=== PATIENT | male | born 1965 | race Caucasian/White ===

== ENCOUNTER 2017-02-21 08:46 | Emergency (ER) | payer OTHER ==
[~2017-02-21] VITALS: Ht 170.2 cm; Wt 70.0 kg
[~2017-02-21 08:46] MED LIST: ADVAIR 100/501 DISK IH; ASCORBIC ACID500 M3 PO; ATROVENT 00.5 MG/2.5 IH; AUGMENTIN875 MG PO; AXIRON90 ML TD; B COMPLETE1 EACH PO; BUDEPRION XL150 MG PO; BUPROPION HCL150 M2 PO; CEFTIN500 MG PO; CEPHALEXIN500 MG PO; CHANTIX1 MG PO; CLONAZEPAM1 MG PO; CLOTRIMAZOLE10 MG PO; COBAL-10001000 MCG/2 IM; COLESTID1 GM PO; COLESTIPOL HCL1 GM PO; COMBIVENT INH14.7 GM IH; COMBIVENT RESPIM4 GM IH; CYANOCOBAL1000 MCG/2 IM; CYPROHEPTADINE H4 MG PO; DELTASONE20 MG PO; DHEA50 M1 PO; DHEA50 MG PO; DIAZEPAM5 MG PO; DUONEB 2.5-0.5 M3 ML AEROSOL; DUONEB 2.5-0.5 M3 ML IH; ERGOCALCIF50000 UNIT PO; ESKALITH300 M1 PO; FEOSOL325 MG PO; FLUOXETINE HCL20 MG PO; FLUTICASONE PROPIONA; FUROSEMIDE40 MG PO; GALZIN50 MG PO; HABITROL,NICODE21 MG TD; IRON325 M1 PO; IRON325 MG PO; K-DUR20 MEQ PO; KLONOPIN0.5 M1 PO; KLOR-CON M2020 MEQ PO; LAMISIL250 MG PO; LANSOPRAZOLE30 MG PO; LASIX40 MG PO; LEVAQUIN750 MG PO; LITHIUM CARBON300 M1 PO; LITHIUM CARBON300 MG PO; LOTRISONE15 GM TP; LOVAZA1 GM PO; LYRICA75 MG PO; MEDROL DOSEPAK4 MG PO; MELATIN3 MG PO; METOCLOPRAMIDE10 MG PO; Neosporin Ointment TP; OCUFLOX 0.100 DROP/5 BOTH EYES; OXYCODONE HCL10 MG PO; OXYCONTIN40 MG PO; OXYCONTIN60 MG PO; OxyCONTIN PO; PENTASA500 MG PO; POTASSIUM CHLO20 ME1 PO; PREDNISONE10 MG PO; PREDNISONE20 MG PO; PREVACID30 MG PO; Pentasa PO; Prevacid PO; Proventil,Ventolin H IH; Prozac PO; REQUIP1 MG PO; REQUIP4 MG PO; ROPINIROLE HCL1 MG PO; SPIRIVA1 INHALATI IH; Tamiflu PO; Tessalon Perle PO; Theragran-M,Centrum, PO; VALIUM5 MG PO; VIAGRA100 MG PO; VITAMIN A10000 UNIT PO; VITAMIN C1000 MG PO; VITAMIN D400 UNIT PO; VITAMIN E1000 UNI1 PO; Vicodin,Lortab 5/500 PO; WELLBUTRIN SR150 MG PO; XALATAN2.5 ML BOTH EYES; ZEGERID 20 MG1 EACH PO; ZEGERID PO; ZOFRAN4 MG PO; [UNRECOGNIZED DRUG - CODE] PO; [UNRECOGNIZED DRUG - OTHER] PO
[2017-02-21 08:47] VITALS: BP 140/70
== END 2017-02-21 10:01 | disposition left against medical advice (07) ==
LOC: EME → EDBD 08:46 → EME 08:46
DX: T50.901A Poisoning by unspecified drugs, medicaments and biological substances, accidental (unintentional), initial encounter (principal); J44.9 Chronic obstructive pulmonary disease, unspecified; E11.9 Type 2 diabetes mellitus without complications; K21.9 Gastro-esophageal reflux disease without esophagitis; K50.90 Crohn's disease, unspecified, without complications; Z72.0 Tobacco use
CPT/HCPCS: 80048; 80076; 81003; 85025; 99281; 99284; G0480; J2310; J2405

== ENCOUNTER 2017-10-28 00:46 | Inpatient (IN) | payer OTHER ==
[~2017-10-28] VITALS: Ht 170.2 cm; Wt 68.4 kg
[2017-10-28 01:33] LABS: HEMATOCRIT 39.2 % (38.0-50.0); HEMOGLOBIN 13.2 G/DL (12.5-16.6); MCH 31.1 PG (29.0-34.0); MCHC 33.7 G/DL (30.0-36.0); MCV 92.2 FL (86-99); PLATELET COUNT 255 K/uL (156-360); RBC DIS.WIDTH-SD 43.6 % (39-53); RED BLOOD COUNT 4.25 M/uL (4.00-5.50); WHITE BLOOD COUNT 6.9 K/uL (4.1-10.2)
[2017-10-28 01:49] LABS: CHLORIDE 106 mEq/L (99-109); POTASSIUM 4.1 mEq/L (3.7-5.4); SODIUM 139 mEq/L (136-147)
[2017-10-28 01:51] LABS: GLUCOSE 112 mg/dL (70-99)
[2017-10-28 01:54] LABS: SERUM ETHYL ALCOHOL < 10 mg/dL
[2017-10-28 01:55] LABS: CREATININE 0.8 mg/dL (0.6-1.3); GFR ESTIMATE (CALCULATED) > 59 mL/min/ (58.99-99999)
[2017-10-28 01:56] LABS: UREA NITROGEN (BUN) 8 mg/dL (9-23)
[2017-10-28 03:32] LABS: AMPHETAMINE NEGATIVE (500 ng/mL); BARBITURATES NEGATIVE (200 ng/mL); BENZODIAZEPINES NEGATIVE (150 ng/mL); BUPRENORPHINE NEGATIVE (10 ng/mL); COCAINE NEGATIVE (150 ng/mL); METHADONE NEGATIVE (200 ng/mL); METHAMPHETAMINE NEGATIVE (500 ng/mL); OPIATES (MORPHINE) PRESUMPTIVE POSITIVE (100 ng/mL); OXYCODONE PRESUMPTIVE POSITIVE (100 ng/mL); PHENCYCLIDINE NEGATIVE (25 ng/mL); PROPOXYPHENE NEGATIVE (300 ng/mL); THC CANNABINOIDS NEGATIVE (50 ng/mL); TRICYCLIC ANTIDEPRESSANTS NEGATIVE (300 ng/mL)
[2017-10-28 09:34] VITALS: BP 111/70
[2017-10-28 15:13] VITALS: BP 112/65
[2017-10-29 07:43] VITALS: BP 140/76
[2017-10-29 14:21] LABS: BASOPHIL (%) 0.3 % (0-1); EOSINOPHIL (%) 0.9 % (0-5); EOSINOPHIL COUNT 0.1 K/uL (0-0.3); HEMOGLOBIN 13.5 G/DL (12.5-16.6); IMMATURE GRANULOCYTE (%) 0.3 % (0.0-0.7); LYMPHOCYTE (%) 10.7 % (15-42); LYMPHOCYTE COUNT 1.1 K/uL (1.0-2.8); MCHC 33.8 G/DL (30.0-36.0); MCV 91.7 FL (86-99); MONOCYTE (%) 4.1 % (3-12); MONOCYTE COUNT 0.4 K/uL (0-0.8); NEUTROPHIL (%) 83.7 % (45-76); NEUTROPHIL COUNT 8.6 K/uL (1.8-6.4); PLATELET COUNT 262 K/uL (156-360); RBC DIS.WIDTH-CV 12.5 % (11.8-14.6); RBC DIS.WIDTH-SD 42.5 % (39-53); RED BLOOD COUNT 4.36 M/uL (4.00-5.50); WHITE BLOOD COUNT 10.2 K/uL (4.1-10.2)
[2017-10-29 14:30] LABS: ALBUMIN 3.9 g/dL (3.2-4.8); CHLORIDE 104 mEq/L (99-109); POTASSIUM 4.4 mEq/L (3.7-5.4); SODIUM 137 mEq/L (136-147)
[2017-10-29 14:31] LABS: MAGNESIUM 2.1 mg/dL (1.3-2.7)
[2017-10-29 14:33] LABS: GLUCOSE 111 mg/dL (70-99); TOTAL PROTEIN 6.4 g/dL (6.4-8.3)
[2017-10-29 14:34] LABS: TOTAL BILIRUBIN 0.2 mg/dL (0.0-1.0)
[2017-10-29 14:36] LABS: ALKALINE PHOSPHATASE 74 IU/L (3-129); CREATININE 0.8 mg/dL (0.6-1.3); GFR ESTIMATE (CALCULATED) > 59 mL/min/ (58.99-99999)
[2017-10-29 14:37] LABS: UREA NITROGEN (BUN) 7 mg/dL (9-23)
[2017-10-29 14:38] LABS: AST (GOT) 23 IU/L (2-34)
[2017-10-29 14:39] LABS: ALT (GPT) 20 IU/L (3-49)
[2017-10-29 14:40] LABS: LIPASE 12 U/L (1.0-51.0)
[2017-10-29 15:21] VITALS: BP 109/66
[2017-10-29 18:57] LABS: BASOPHIL (%) 0.2 % (0-1); EOSINOPHIL (%) 0.9 % (0-5); EOSINOPHIL COUNT 0.1 K/uL (0-0.3); HEMATOCRIT 41.6 % (38.0-50.0); HEMOGLOBIN 13.7 G/DL (12.5-16.6); IMMATURE GRANULOCYTE (%) 0.3 % (0.0-0.7); LYMPHOCYTE (%) 12.6 % (15-42); LYMPHOCYTE COUNT 1.2 K/uL (1.0-2.8); MCH 30.2 PG (29.0-34.0); MCHC 32.9 G/DL (30.0-36.0); MCV 91.6 FL (86-99); MONOCYTE (%) 5.2 % (3-12); MONOCYTE COUNT 0.5 K/uL (0-0.8); NEUTROPHIL (%) 80.8 % (45-76); NEUTROPHIL COUNT 7.9 K/uL (1.8-6.4); PLATELET COUNT 272 K/uL (156-360); RBC DIS.WIDTH-CV 12.6 % (11.8-14.6); RBC DIS.WIDTH-SD 42.5 % (39-53); RED BLOOD COUNT 4.54 M/uL (4.00-5.50); WHITE BLOOD COUNT 9.8 K/uL (4.1-10.2)
[2017-10-29 19:07] LABS: ALBUMIN 4.1 G/DL (3.2-4.8); AMYLASE 30 IU/L (1-118); CHLORIDE 101 MEQ/L (99-109); POTASSIUM 4.3 MEQ/L (3.7-5.4); SODIUM 138 MEQ/L (136-147); TOTAL BILIRUBIN 0.3 MG/DL (0.0-1.0)
[2017-10-29 19:13] LABS: ALKALINE PHOSPHATASE 73 IU/L (3-129); ALT (GPT) 17 IU/L (3-49); AST (GOT) 21 IU/L (2-34); CREATININE 0.7 MG/DL (0.6-1.3); GFR ESTIMATE (CALCULATED) > 59 mL/min/ (58.99-99999); GLUCOSE 99 mg/dL (70-99); LIPASE 10 U/L (1.0-51.0); TOTAL PROTEIN 6.5 G/DL (6.4-8.3); UREA NITROGEN (BUN) 7 mg/dL (9-23)
== END 2017-10-29 18:38 | DRG 885 ==
LOC: EME 00:46 → EDOF 03:00 → 1WEST 09:22 → ENRESERV 09:22 → 1WEST 10-29 18:38
PROVIDERS: Internal Medicine; Physician Assistant
DX: F31.5 Bipolar disorder, current episode depressed, severe, with psychotic features (principal); K50.90 Crohn's disease, unspecified, without complications; F11.20 Opioid dependence, uncomplicated; E11.9 Type 2 diabetes mellitus without complications; G89.4 Chronic pain syndrome; K57.92 Diverticulitis of intestine, part unspecified, without perforation or abscess without bleeding; F17.200 Nicotine dependence, unspecified, uncomplicated; J44.9 Chronic obstructive pulmonary disease, unspecified; K21.9 Gastro-esophageal reflux disease without esophagitis; K59.00 Constipation, unspecified; M79.7 Fibromyalgia; T18.4XXA Foreign body in colon, initial encounter; Z82.49 Family history of ischemic heart disease and other diseases of the circulatory system; Z82.5 Family history of asthma and other chronic lower respiratory diseases; F41.9 Anxiety disorder, unspecified
CPT/HCPCS: 74177; 80048; 80053; 82150; 83690; 83735; 84999; 85025; 85025 91; 85027; 90839; 94640; 94640 76; 99202; G0480

== ENCOUNTER 2017-10-29 18:33 | Inpatient (IN) | payer OTHER ==
[~2017-10-29] VITALS: Ht 170.2 cm; Wt 70.4 kg
[2017-10-29 19:31] VITALS: BP 130/67
[2017-10-29 23:13] VITALS: BP 123/68
[2017-10-30 04:35] VITALS: BP 112/57
[2017-10-30 06:05] LABS: HEMATOCRIT 37.6 % (38.0-50.0); HEMOGLOBIN 12.8 G/DL (12.5-16.6); MCH 31.3 PG (29.0-34.0); MCV 91.9 FL (86-99); PLATELET COUNT 221 K/uL (156-360); RBC DIS.WIDTH-CV 12.8 % (11.8-14.6); RBC DIS.WIDTH-SD 43.6 % (39-53); RED BLOOD COUNT 4.09 M/uL (4.00-5.50); WHITE BLOOD COUNT 9.3 K/uL (4.1-10.2)
[2017-10-30 07:59] VITALS: BP 105/63
[2017-10-30 11:39] VITALS: BP 94/50
[2017-10-30 11:44] VITALS: BP 127/69
[2017-10-30 16:08] VITALS: BP 104/59
[2017-10-30 23:28] VITALS: BP 104/59
[2017-10-31 07:07] LABS: CHLORIDE 103 MEQ/L (99-109); CREATININE 0.7 MG/DL (0.6-1.3); GFR ESTIMATE (CALCULATED) > 59 mL/min/ (58.99-99999); GLUCOSE 139 mg/dL (70-99); POTASSIUM 4.8 MEQ/L (3.7-5.4); SODIUM 138 MEQ/L (136-147); UREA NITROGEN (BUN) 13 mg/dL (9-23)
[2017-10-31 07:56] VITALS: BP 132/66
[2017-10-31 11:11] VITALS: BP 132/58
[2017-10-31] MEDS ORDERED: METRONIDAZOLE500 MG PO (12:10)
[2017-10-31] MEDS ORDERED: DELZICOL400 M1 PO (12:10)
[2017-10-31] MEDS ORDERED: RISPERDAL2 MG PO (12:10)
[2017-10-31] MEDS ORDERED: LITHIUM CARBON300 M2 PO (12:10)
[2017-10-31] MEDS ORDERED: PREDNISONE10 MG PO (12:10)
== END 2017-10-31 14:32 | disposition home or self-care (01) | DRG 389 ==
LOC: 3EAST 18:33 → ENRESERV 18:33 → 3EAST 19:13
PROVIDERS: Internal Medicine
DX: K56.600 Partial intestinal obstruction, unspecified as to cause (principal); K50.90 Crohn's disease, unspecified, without complications; F31.60 Bipolar disorder, current episode mixed, unspecified; F11.20 Opioid dependence, uncomplicated; E11.9 Type 2 diabetes mellitus without complications; G89.4 Chronic pain syndrome; J44.9 Chronic obstructive pulmonary disease, unspecified
CPT/HCPCS: 71045; 80048; 83605; 85027; 87040; 94640; 94640 76; 94799; J0744; J1170; J1650; J2270; J2765; J2930; J7030

== ENCOUNTER 2018-03-05 19:28 | Emergency (ER) | payer OTHER ==
[~2018-03-05] VITALS: Ht 172.7 cm; Wt 65.8 kg
[~2018-03-05 19:28] MED LIST changes: +DELZICOL400 M1 PO; +LITHIUM CARBON300 M2 PO; +METRONIDAZOLE500 MG PO; +RISPERDAL2 MG PO
[2018-03-05 20:49] LABS: HEMATOCRIT 35.9 % (38.0-50.0); HEMOGLOBIN 12.1 G/DL (12.5-16.6); MCH 29.7 PG (29.0-34.0); MCHC 33.7 G/DL (30.0-36.0); MCV 88.2 FL (86-99); PLATELET COUNT 285 K/uL (156-360); RBC DIS.WIDTH-CV 14.2 % (11.8-14.6); RBC DIS.WIDTH-SD 45.7 % (39-53); RED BLOOD COUNT 4.07 M/uL (4.00-5.50); WHITE BLOOD COUNT 12.6 K/uL (4.1-10.2)
[2018-03-05 20:53] LABS: CHLORIDE 97 mEq/L (99-109); POTASSIUM 3.8 mEq/L (3.7-5.4); SODIUM 136 mEq/L (136-147)
[2018-03-05 20:54] LABS: GLUCOSE 109 mg/dL (70-99)
[2018-03-05 20:58] LABS: CREATININE 0.7 mg/dL (0.6-1.3); GFR ESTIMATE (CALCULATED) > 59 mL/min/ (58.99-99999)
[2018-03-05 20:59] LABS: UREA NITROGEN (BUN) 5 mg/dL (9-23)
[2018-03-05 21:02] LABS: TROP-I INTERPRETATION NEGATIVE; TROPONIN-I < 0.01 ng/mL (0.0-0.30)
[2018-03-05] MEDS ORDERED: CEFTIN500 MG PO (22:06)
[2018-03-05] MEDS ORDERED: MEDROL DOSEPAK4 MG PO (22:06)
[2018-03-05] MEDS ORDERED: ZITHROMAX Z-PA250 MG PO (22:06)
[2018-03-05 22:31] VITALS: BP 130/74
== END 2018-03-05 22:31 | disposition home or self-care (01) ==
LOC: EME 19:28
DX: J18.9 Pneumonia, unspecified organism (principal); R94.31 Abnormal electrocardiogram [ECG] [EKG]; K21.9 Gastro-esophageal reflux disease without esophagitis; K50.90 Crohn's disease, unspecified, without complications; M19.90 Unspecified osteoarthritis, unspecified site; G62.9 Polyneuropathy, unspecified; M79.7 Fibromyalgia; F41.9 Anxiety disorder, unspecified; F32.9 Major depressive disorder, single episode, unspecified; F20.9 Schizophrenia, unspecified; F17.210 Nicotine dependence, cigarettes, uncomplicated; Z79.891 Long term (current) use of opiate analgesic; Z87.01 Personal history of pneumonia (recurrent); Z91.048 Other nonmedicinal substance allergy status; Z91.018 Allergy to other foods; Z88.5 Allergy status to narcotic agent; Z88.1 Allergy status to other antibiotic agents; Z88.8 Allergy status to other drugs, medicaments and biological substances
CPT/HCPCS: 71046; 80048; 84484; 85027; 93005; 94640; 99281; 99284; J0696; J7512